=== PATIENT | female | born 1950 | race Caucasian/White ===

== ENCOUNTER 2024-11-08 21:41 | Inpatient (IN) ==
[2024-11-08 23:23] LABS: ABS Basophils 0.1 10^3/uL (0.0-0.1); ABS Eosinophils 0.2 10^3/uL (0.0-0.5); ABS Lymphocytes 0.1 10^3/uL (1.0-4.8); ABS Monocytes 0.2 10^3/uL (0.0-0.9); ABS Neutrophils 11.1 10^3/uL (1.5-7.6); Eosinophil % 1.9 %; Hematocrit 30.2 % (35-45); Hemoglobin 9.8 g/dL (11.5-14.3); Lymphocyte % 0.5 %; Mean Corpuscular Hemoglobin 31.6 pg (27-33); Mean Corpuscular Hgb Conc 32.5 g/dL (31-36); Mean Corpuscular Volume 97.3 fL (80-97); Mean Platelet Volume 6.8 fL (7.5-11.2); Platelet Count 258 10^3/uL (150-450); Red Cell Distribution Width 18.8 % (12-17); White Blood Count 11.6 10^3/uL (3.8-11.8)
[2024-11-09 00:05] LABS: Albumin 3.4 g/dL (3.5-5.7); Albumin/Globulin Ratio 1.2 (1-3); C Reactive Protein 9.63 mg/L (<8.01); Calcium 8.8 mg/dL (8.6-10.3); Creatinine, Serum 3.85 mg/dL (0.51-0.95); Globulin 2.9 g/dL (2-4); Magnesium 1.6 mg/dL (1.9-2.7); Potassium 4.1 mmol/L (3.5-5.0); Total Bilirubin 0.7 mg/dL (0.2-1.0); Total Protein 6.3 g/dL (6.4-8.9); eGFR CKD-EPI 11.7 (>60)
[2024-11-09 00:54] LABS: High Sensitivity Troponin 1 Hr 55 pg/mL (<15)
[2024-11-09 06:11] LABS: Hematocrit 26.5 % (35-45)
[2024-11-09 08:36] LABS: Urine Appearance Extra Turbid; Urine Bilirubin Negative (Negative); Urine Blood 3+ (Negative); Urine Glucose Negative (Negative); Urine Ketones Negative (Negative); Urine Nitrite Negative (Negative); Urine Protein 2+ (>=100 mg/dL) (Negative); Urine Specific Gravity 1.013 (1.002-1.030); Urine Urobilinogen Negative (Negative); Urine pH 7.5 (5.0-8.0)
[2024-11-09 08:49] LABS: Urine Bacteria 3+ /HPF (Absent); Urine Red Blood Cell 3+(>10/hpf) /HPF (0-Trace); Urine Squamous Epithelial Cell Present /HPF (Absent); Urine White Blood Cell 3+(>20/hpf) /HPF (0-Trace)
[2024-11-09 09:02] LABS: Urine Color Yellow
[2024-11-09] MEDS ORDERED: NS 0.9% 1000 ml BAG 100 ML IV PRN (09:49)
[2024-11-09] MEDS ORDERED: Albumin Human 25% 25 GM/100 ML BTL IV PRN (09:49)
[2024-11-09] MEDS ORDERED: NS 0.9% 1000 ml BAG 200 ML IV PRN (09:49)
[2024-11-09] MEDS ORDERED: Ondansetron 4 mg VIAL 2 MG/ML 2 ml VIAL IV PRN (10:06)
[2024-11-09] MEDS: Diphenoxylat/Atrop 2.5-0.025mg TAB PO ONE (10:30)
[2024-11-09] MEDS: cefTRIAXone 1 gm/50 mL D5W 1 GM/50 ML BAG IV ONE (10:30)
[2024-11-09] MEDS ORDERED: Albuterol HFA INHALER 8 gm MDI INH PRN (12:43)
[2024-11-09] MEDS ORDERED: Dextrose 50% Syringe 50 ml 25 GM/50 ML SYRINGE IV PUSH PRN (12:50)
[2024-11-09] MEDS: Heparin 1,000 UNIT/ML 10 ml (10,000 UNITS) CATHLAB/DIALYSIS DIALYSIS PRN (13:29)
[2024-11-09] MEDS ORDERED: Heparin 5000 UNITS/ML 1 mL VIAL SUBCUT SCH (14:00)
[2024-11-09 14:17] LABS: Hepatitis B Surface Antigen Nonreactive (Nonreactive)
[2024-11-09 14:34] LABS: Hepatitis B Surface Ab Not Immune (Immune)
[2024-11-09] MEDS: cefTRIAXone 1 gm/50 mL D5W 1 GM/50 ML BAG IV SCH (17:34)
[2024-11-09] MEDS: Sodium Bicarb 650 mg (ANTACID) TAB PO SCH (17:34)
[2024-11-09] MEDS: Mometasone/Formoter 200/5 MDI INH SCH (19:37)
[2024-11-09] MEDS ORDERED: Labetalol 300 mg TAB PO SCH (21:00)
[2024-11-09] MEDS: Ondansetron 4 mg VIAL 2 MG/ML 2 ml VIAL IV PRN (21:19)
[2024-11-09] MEDS: Labetalol 300 mg TAB PO SCH (21:20)
[2024-11-09] MEDS: Conjugated Estrogens VAG CM 42.5 gm TUBE VAGINAL SCH (21:26)
[2024-11-10 10:15] LABS: ABS Basophils 0.1 10^3/uL (0.0-0.1); ABS Eosinophils 0.1 10^3/uL (0.0-0.5); ABS Lymphocytes 0.5 10^3/uL (1.0-4.8); ABS Monocytes 0.7 10^3/uL (0.0-0.9); ABS Neutrophils 7.3 10^3/uL (1.5-7.6); Eosinophil % 0.8 %; Lymphocyte % 6.2 %; Mean Corpuscular Hemoglobin 32.4 pg (27-33); Mean Corpuscular Hgb Conc 33.2 g/dL (31-36); Mean Corpuscular Volume 97.6 fL (80-97); Mean Platelet Volume 7.4 fL (7.5-11.2); Platelet Count 221 10^3/uL (150-450); Red Blood Count 2.77 10^6/uL (3.63-4.92); Red Cell Distribution Width 18.6 % (12-17); White Blood Count 8.8 10^3/uL (3.8-11.8)
[2024-11-10 10:32] LABS: Calcium 8.3 mg/dL (8.6-10.3); Creatinine, Serum 3.16 mg/dL (0.51-0.95); eGFR CKD-EPI 14.9 (>60)
[2024-11-11 11:05] LABS: Calcium 8.3 mg/dL (8.6-10.3); Creatinine, Serum 4.12 mg/dL (0.51-0.95); Potassium 3.2 mmol/L (3.5-5.0); eGFR CKD-EPI 10.8 (>60)
[2024-11-11] MEDS: KCL 20 MEQ/100 ML IVPREMIX 20 MEQ/100 ML BAG IV ONE (13:22)
[2024-11-11 17:51] LABS: TSH Ultra Thyroid Stim Horm 8.49 mcIU/mL (0.34-5.60)
[2024-11-12 07:45] LABS: Albumin 2.7 g/dL (3.5-5.7); Albumin/Globulin Ratio 1.1 (1-3); Calcium 7.8 mg/dL (8.6-10.3); Creatinine, Serum 4.33 mg/dL (0.51-0.95); Globulin 2.5 g/dL (2-4); Magnesium 1.5 mg/dL (1.9-2.7); Potassium 3.7 mmol/L (3.5-5.0); Total Bilirubin 0.4 mg/dL (0.2-1.0); Total Protein 5.2 g/dL (6.4-8.9); eGFR CKD-EPI 10.2 (>60)
[2024-11-12] MEDS: Magnesium Sulfate IV 1GM/100ML 1 GM/100 ML BAG IV ONE (12:46)
[2024-11-12] MEDS: Magnesium Sulfate 2 gm BAG 2 GM/50 ML BAG IVPB ONE (14:07)
[2024-11-12 14:49] LABS: Norovirus G1 PCR Negative (Negative); Norovirus G2 PCR Positive (Negative)
[2024-11-13 10:06] VITALS: BP 103/58
== END 2024-11-13 11:20 | DRG 391 ==
LOC: ED 21:41 → EDHOLD 11-09 10:06 → SUATTDRO 11-09 10:06 → MED 11-09 10:46
PROVIDERS: ADMIT Internal Medicine; ATTEND Internal Medicine